=== PATIENT | female | born 1955 | race Caucasian/White ===

== ENCOUNTER 2024-03-17 09:47 | Outpatient (RCR) | payer OTHER, SELFPAY | END 2024-03-17 23:59 | disposition home or self-care (01) | LOC: RPT 09:47 | PROVIDERS: ATTENDING PHYSICIAN Urology; FAMILY PHYSICIAN Family Medicine | DX: R10.2 Pelvic and perineal pain (principal); N30.10 Interstitial cystitis (chronic) without hematuria; M62.89 Other specified disorders of muscle; Z73.6 Limitation of activities due to disability | CPT/HCPCS: 97110; 97140; 97162 ==

== ENCOUNTER 2024-04-13 09:51 | Outpatient (RCR) | payer OTHER, SELFPAY | END 2024-04-13 23:59 | disposition home or self-care (01) | LOC: RPT 09:51 | PROVIDERS: ATTENDING PHYSICIAN Urology; FAMILY PHYSICIAN Family Medicine | DX: N30.10 Interstitial cystitis (chronic) without hematuria (principal); M62.89 Other specified disorders of muscle; Z73.6 Limitation of activities due to disability | CPT/HCPCS: 97110; 97140 ==

== ENCOUNTER 2024-05-18 10:31 | Outpatient (RCR) | payer OTHER, SELFPAY | END 2024-05-18 23:59 | disposition home or self-care (01) | LOC: RPT 10:31 | PROVIDERS: ATTENDING PHYSICIAN Urology; FAMILY PHYSICIAN Family Medicine | DX: N30.10 Interstitial cystitis (chronic) without hematuria (principal); M62.89 Other specified disorders of muscle | CPT/HCPCS: 97110; 97140 ==

== ENCOUNTER 2024-06-08 09:56 | Outpatient (RCR) | payer OTHER, SELFPAY | END 2024-06-08 23:59 | disposition home or self-care (01) | LOC: RPT 09:56 | PROVIDERS: ATTENDING PHYSICIAN Urology; FAMILY PHYSICIAN Family Medicine | DX: N30.10 Interstitial cystitis (chronic) without hematuria (principal); M62.89 Other specified disorders of muscle; Z73.6 Limitation of activities due to disability | CPT/HCPCS: 97110; 97140; 97530 ==

== ENCOUNTER 2024-06-24 14:28 | Outpatient (RCR) | payer OTHER, SELFPAY | END 2024-06-24 23:59 | disposition home or self-care (01) | LOC: RPT 14:28 | PROVIDERS: ATTENDING PHYSICIAN Urology; FAMILY PHYSICIAN Family Medicine | DX: N30.10 Interstitial cystitis (chronic) without hematuria (principal); M62.89 Other specified disorders of muscle | CPT/HCPCS: 97110; 97140 ==

== ENCOUNTER 2025-01-08 19:44 | Emergency (ER) | payer OTHER, SELFPAY ==
[2025-01-08 20:02] VITALS: BP 179/90
[2025-01-08 20:36] VITALS: BP 177/79
[2025-01-08 20:36] LABS: % Basophils 0.4 % (0-2); % Eosinophils 3.5 % (0-6); % Immature Granulocytes 0.3 % (0-0.5); % Lymphocytes 28.9 % (20.5-51.1); % Monocytes 6.3 % (1.7-9.3); % Neutrophils 60.6 % (42.2-75.2); Absolute Basophils 0.1 10^3/uL (0-0.2); Absolute Eosinophils 0.4 10^3/uL (0-0.7); Absolute Lymphocytes 3.4 10^3/uL (1.2-3.4); Absolute Monocytes 0.7 10^3/uL (0.1-0.6); Absolute Neutrophils 7.1 10^3/uL (1.4-6.5); Hemoglobin 14.1 g/dL (12.0-16.0); Mean Corp Hgb Conc. 34.4 g/dL (33.0-37.0); Mean Corpuscular Hgb 30.5 pg (27.0-31.0); Mean Corpuscular Volume 88.7 fL (81.0-99.0); Mean Platelet Volume 9.5 fL (7.4-10.4); Nucleated Red Blood Cells % 0 %; Platelet Count 263 10^3/uL (130-400); Red Blood Cell Count 4.62 10^6/uL (4.20-5.40); Red Cell Dist. Width 13.2 % (11.5-14.5); White Blood Cell Count 11.7 10^3/uL (4.8-10.8)
[2025-01-08 20:49] LABS: ALT (SGPT) 18 U/L (0-35); AST (SGOT) 17 U/L (14-36); Albumin 4.3 g/dl (3.5-5.0); Alkaline Phosphatase 59 U/L (38-126); Blood Urea Nitrogen 18 mg/dl (7-17); Calcium 9.8 mg/dl (8.4-10.2); Carbon Dioxide 26 mmol/L (22-30); Chloride 104 mmol/L (98-107); Glucose 137 mg/dl (70-99); Potassium 3.7 mmol/L (3.5-5.1); Sodium 139 mmol/L (135-145); Total Bilirubin 0.4 mg/dl (0.2-1.3); Total Protein 6.8 g/dl (6.3-8.2); eGFR > 60.00
[2025-01-08 21:00] VITALS: BP 180/80
[2025-01-08 21:01] LABS: NT-proBNP 72.4 pg/ml; Troponin I < 0.012 ng/ml
--- NOTE | 2025-01-08 21:10 | ED.GENMED ---
History of Present Illness
General
Chief Complaint: Blood Pressure Problem
Source: patient
Exam Limitations: none
Time Seen by Provider: 01/08/25 20:55
History of Present Illness
History of Present Illness:
69-year-old female presents with elevated blood pressure readings at home. She recently started telmisartan 1 month ago. She is on 20 mg daily. She is told to check her blood pressure twice a day and this evening her blood pressure was elevated
with a systolic over 200. She had no headache chest pain or shortness of breath. She tried doubling her dose of telmisartan in the past week but it made her have a headache. She denies any leg swelling. No abdominal pain. No other complaints at
this time
Past History
Past History
ED Past Medical History: Other (Diverticulitis)
ED Past Surgical History: Bowel resection
Social History
Tobacco: Non-smoker
Alcohol: Occasional
Drug: None
Personal:
Phy Exam
Physical Exam
Physical Exam:
General: Well-appearing female no acute respiratory distress
HEENT: Normocephalic atraumatic
Heart: Regular rate and rhythm no murmurs
Lungs: Clear no wheeze
Abdomen is soft nontender nondistended
Extremities: No cyanosis or edema
Skin: Warm
Course
Orders/Labs/Results
Orders:
Orders
01/08/25 20:06
Electrocardiogram (*1) Urgent
Reason for Study: Other
Other Reason for Exam: Respiratory Distress
Cardiac Monitoring- Treatment ONCE
EKG- Treatment ONCE
IV Insert/Care/Rem.- Treatment PRN
CR Chest - 2 Views Urgent
Comment:
Reason For Exam: respiratory distress
O2 Therapy [RESP] Urgent
Titrate/Wean O2 to maintain O2 sat greater than (%): 93
Special Instructions: TO MAINTAIN CONTINUOUS O2 SATS >/= 93%
Pulse Ox/cont/shift [RESP] Urgent
Quantity: 1
Special Instructions: continuous pulse ox
01/08/25 20:18
Complete Blood Count/With Diff Urgent
Comprehensive Metabolic Panel Urgent
NT-proBNP Urgent
Troponin I Urgent
Abnormal Lab Results
01/08/25
20:18
WBC 11.7 H 10^3/uL
(4.8-10.8)
Absolute Neuts (auto) 7.1 H 10^3/uL
(1.4-6.5)
Absolute Monos (auto) 0.7 H 10^3/uL
(0.1-0.6)
BUN 18 H mg/dl
(7-17)
Glucose 137 H mg/dl
(70-99)
01/08/25 20:18
01/08/25 20:18
Vital Signs
Initial and Last Documented VS:
Initial Vital Signs
Temp Pulse Resp BP Pulse Ox
97.1 F 70 20 179/90 97
01/08/25 20:02 01/08/25 20:02 01/08/25 20:02 01/08/25 20:02 01/08/25 20:02
Last Documented Vital Signs
Temp Pulse Resp BP Pulse Ox
97.1 F 56 19 180/80 97
01/08/25 20:02 01/08/25 21:15 01/08/25 21:15 01/08/25 21:00 01/08/25 21:15
MDM/Problems Addressed
Differential Diagnosis Includes:
Elevated blood pressure reading at home without current symptoms. Workup was initiated through triage. Labs reviewed. No concerning symptoms. Serum glucose is 137 but this was not fasting. Troponin and BNP are normal. Kidney functions are
normal.
*Critical Care Note
Total Time (30-74mins, 75-104mins- exclusive of procedures): Not Applicable
Update Note
Update Note:
Chest x-ray clear. Patient has remained stable and asymptomatic. Recommending following up with family doctor for hypertension. Also discussed increasing the 30 mg of telmisartan daily
ED Attending Note
-
Portions of this chart may have been created with voice recognition software.� Occasional wrong word or��sound alike� substitutions may have occurred due to the inherent limitations of voice recognition software.
Discharge Plan
Departure
Patient Disposition: Home (Routine Discharge)
Date of Disposition: 01/08/25
Time of Disposition: 22:32
Patient with high blood pressure during this ER visit?: Yes
Discharge Problem:
Hypertension
Instructions: High Blood Pressure (DC)
Prescriptions:
No Action
Sleepy Time Tea
1 dose PO HS
acetaminophen 325 MG tablet
650 mg PO Q4HPRN PRN (Reason: fever/pain) Qty: 0 0RF
metronidazole 500 MG tablet
500 mg PO TID Qty: 21 0RF
levofloxacin 500 MG tablet
500 mg PO DAILY Qty: 7 0RF
Referrals:
Jovanni Busby MD, Resident [Family Provider] -
Activity Restrictions/Additional Instructions:
Please follow-up with your doctor. Consider increasing to 30 mg of your current medication daily. Return if needed otherwise
Interventions
Interventions:
*Risk Screen - Suicide Last Done: 01/08/25 20:02
*General Assessment Last Done: 01/08/25 20:02
*Neglect/Abuse Screening Last Done: 01/08/25 20:02
*ED- Fall Risk Assessment Last Done: 01/08/25 20:02
*ED COVID-19 Vaccine History Last Done: 01/08/25 20:02
Discharge Date and Time
Print Language: DANISH
[2025-01-08 21:21] VITALS: BMI 22.2
[2025-01-08 22:35] VITALS: BP 158/72
== END 2025-01-08 23:10 | disposition home or self-care (01) ==
LOC: EMR 19:44
PROVIDERS: Emergency Medicine; EMERGENCY PHYSICIAN Emergency Medicine
DX: I10 Essential (primary) hypertension (principal); Z79.899 Other long term (current) drug therapy
CPT/HCPCS: 99285; 71046; 80053; 83880; 84484; 85025; 93005

== ENCOUNTER → 2025-08-30 09:33 | Outpatient (REF) | payer OTHER, SELFPAY | LOC: RAD 09:33 | PROVIDERS: ATTENDING PHYSICIAN Internal Medicine Nephrology; FAMILY PHYSICIAN Family Medicine; REFERRING PHYSICIAN Urology | DX: I10 Essential (primary) hypertension (principal) | CPT/HCPCS: 93975 ==